=== PATIENT | male | born 1960 | race African-American/Black ===

== ENCOUNTER 2023-11-07 23:07 | Inpatient (IN) | payer OTHER ==
[~2023-11-07] VITALS: Ht 182.9 cm; Wt 93.9 kg
[2023-11-07 23:30] LABS: BASOPHILS % 0.7 % (0.0-2.0); EOSINOPHILS % 3.2 % (0.0-5.0); LYMPHOCYTES % 54.6 % (20.0-50.0); MEAN CORPUSCULAR HEMOGLOBIN 27.1 pg (28.0-32.0); MEAN CORPUSCULAR HGB CONC 32.4 g/dL (31.0-37.0); MEAN CORPUSCULAR VOLUME 83.7 fL (80.0-94.0); MEAN PLATELET VOLUME 8.5 fl (7.4-10.4); MONOCYTES % 4.9 % (2.0-8.0); NEUTROPHILS % 36.6 % (40.0-76.0); PLATELET 156 x1000/uL (130-400); RED BLOOD CELL COUNT 4.06 mill/uL (4.7-6.1); RED CELL DISTRIBUTION WIDTH 14.2 % (11.6-14.6); WHITE BLOOD COUNT 3.9 x1000/uL (4.5-11.0)
[2023-11-07 23:38] LABS: CHLORIDE 111 mEq/L (98-107); POTASSIUM 3.5 mEq/L (3.5-5.1); SODIUM 144 mEq/L (136-145)
[2023-11-07 23:39] LABS: CARBON DIOXIDE 26 mEq/L (21-32)
[2023-11-07 23:40] LABS: CALCIUM 8.4 mg/dL (8.7-10.4)
[2023-11-07 23:44] LABS: CREATININE 1.2 mg/dL (0.6-1.3); GLUCOSE 124 mg/dL (70-105); UREA NITROGEN BLOOD 24 mg/dL (9-23)
[2023-11-07 23:45] LABS: TROPONIN I HIGH SENSITIVITY 6 ng/L (3.0-53)
[2023-11-07 23:46] LABS: ALANINE AMINOTRANSFERASE 163 IU/L (10-49); ASPARTATE AMINOTRANSFERASE 187 IU/L (<34)
[2023-11-07 23:47] LABS: BILIRUBIN TOTAL 0.3 mg/dL (0.1-1.0); D-DIMER 2.44 mg/L FEU (<0.50); INR 1.1; PROTEIN TOTAL 6.7 g/dL (6.0-8.3); PROTHROMBIN TIME 11.9 sec (9.6-11.0)
[2023-11-07 23:51] LABS: ETHANOL BLOOD < 10 mg/dL (<10)
[2023-11-07] MEDS: SODIUM CHLORIDE 0.9% 1000ML BAG (SEPSIS BOLUS) IV ONE (23:53)
[2023-11-08] MEDS: ONDANSETRON HCL 4MG/2ML INJ IV ONE (01:49)
[2023-11-08] MEDS: METHYLPREDNISOLONE SOD SUCC 40MG/ML (ACT-O-VIAL) IV NR (02:45)
[2023-11-08] MEDS: DIPHENHYDRAMINE 50MG/ML VIAL IV ONE (02:45)
[2023-11-08] MEDS: METHYLPREDNISOLONE SOD SUCC 40MG VIAL IV ONE (02:47)
[2023-11-08 03:00] LABS: BG BASE EXCESS -4.1 mmol/L (-2.0-2.0); BG CARBOXYHEMOGLOBIN 0.3 % (0.5-1.5); BG DEOXYHEMOGLOBIN 3.6 % (0.0-5.0); BG FRACTION INSPIRED OXYGEN 21; BG HCO3 ACT 20.9 mmol/L (22.0-26.0); BG METHEMOGLOBIN 0.3 % (0.0-1.5); BG OXYGEN SATURATION 96.4 % (92.0-98.5); BG OXYHEMOGLOBIN 95.8 % (94.0-97.0); BG PH 7.358 (7.350-7.450); BG PO2 92.8 mmHg (75.0-100.0); BG SAMPLE SITE LEFT BRACHIAL; BG TOTAL HEMOGLOBIN 12.8 g/dL (12.0-18.0); BG VENT MODE ROOM AIR
[2023-11-08] MEDS ORDERED: ONDANSETRON HCL 4MG/2ML INJ IV PRN (03:15)
[2023-11-08] MEDS ORDERED: IPRATROPIUM/ALBUTEROL 0.5-3(2.5)MG/3ML NEB HHN PRN (03:15)
[2023-11-08] MEDS ORDERED: ACETAMINOPHEN 650MG/20.3ML UDC GT PRN (03:15)
[2023-11-08] MEDS: PANTOPRAZOLE SODIUM 40 MG/VIAL IV SCH (04:29)
[2023-11-08] MEDS: DEXT 5%/0.45% NACL 1000ML 1,000 ML IV SCH (04:30)
[2023-11-08] MEDS: IOHEXOL-350 100 ML BOTTLE ONE (05:04)
[2023-11-08 08:32] LABS: CREATINE KINASE MB FRACTION 1.7 ng/mL (0.5-3.6); TROPONIN I HIGH SENSITIVITY 4 ng/L (3.0-53)
[2023-11-08 08:33] LABS: IRON 13 ug/dL (65-175)
[2023-11-08 08:36] LABS: CREATINE KINASE 276 IU/L (46-171); FERRITIN 296 ng/mL (22-322); PHOSPHORUS 2.6 mg/dL (2.5-4.9); TOTAL IRON BINDING CAPACITY 94 ug/dl (250-425)
[2023-11-08 08:46] LABS: HEPATITIS B SURFACE ANTIGEN NEGATIVE (Negative)
[2023-11-08 09:05] VITALS: BP 118/70; PULSE 74; RESP 18; TEMP 98.1
[2023-11-08 09:06] VITALS: BP 118/70; PULSE 74; RESP 18; TEMP 98.1
[2023-11-08 09:07] LABS: HEPATITIS A AB IGM NEGATIVE (Negative); HEPATITIS B CORE AB IGM NEGATIVE (Negative)
[2023-11-08 09:08] LABS: HEPATITIS C AB NON REACTIVE (Neg) (Negative)
[2023-11-08] MEDS: ENOXAPARIN 40MG/0.4ML SYR SUBCUT SCH (09:45)
[2023-11-08 12:00] VITALS: BP 120/74; PULSE 134; RESP 22; TEMP 97
[2023-11-08 13:00] LABS: CLARITY URINE CLEAR (CLEAR); COLOR URINE DARK YELLOW (YELLOW); GLUCOSE URINE NEGATIVE (NEGATIVE); KETONES URINE 2+ (NEGATIVE); LEUKOCYTE ESTERASE URINE TRACE (NEGATIVE); NITRITE URINE NEGATIVE (NEGATIVE); OCCULT BLOOD URINE NEGATIVE (NEGATIVE); PH URINE 5.5 (4.5-8.0); PROTEIN URINE 1+ (NEGATIVE); SPECIFIC GRAVITY URINE 1.061 (1.005-1.030)
[2023-11-08 13:32] LABS: *AMPHETAMINES SCREEN URINE NEGATIVE (NEGATIVE); *BARBITURATES SCREEN URINE NEGATIVE (NEGATIVE); *BENZODIAZEPINES SCREEN URINE NEGATIVE (NEGATIVE); *COCAINE SCREEN URINE NEGATIVE (NEGATIVE); METHADONE URINE SCREEN NEGATIVE (NEGATIVE); OPIATES URINE SCREEN NEGATIVE (NEGATIVE)
[2023-11-08 13:33] LABS: CANNABINOID URINE SCREEN NEGATIVE (NEGATIVE); ECSTASY MDMA SCREEN URINE NEGATIVE (NEGATIVE); PHENCYCLIDINE URINE SCREEN NEGATIVE (NEGATIVE); SQUAMOUS EPITHELIAL CELL URINE RARE /lpf (RARE/1+)
[2023-11-08 13:34] LABS: BACTERIA URINE TRACE
[2023-11-08 13:35] LABS: RBC URINE 0-2 /hpf (0-2); WBC URINE 0-2 /hpf (0-2)
[2023-11-08 16:00] VITALS: BP 110/68; PULSE 84; RESP 22; TEMP 98.4
[2023-11-08 17:00] LABS: DIFFERENTIAL COMMENT 1; HEMATOCRIT. 36.5 % (42.0-52.0); HEMOGLOBIN. 11.7 g/dL (14.0-18.0); MEAN CORPUSCULAR HEMOGLOBIN 26.8 pg (28.0-32.0); MEAN CORPUSCULAR HGB CONC 31.9 g/dL (31.0-37.0); MEAN PLATELET VOLUME 9.1 fl (7.4-10.4); PLATELET 175 x1000/uL (130-400); RED BLOOD CELL COUNT 4.35 mill/uL (4.7-6.1); RED CELL DISTRIBUTION WIDTH 14.3 % (11.6-14.6); WHITE BLOOD COUNT 13.1 x1000/uL (4.5-11.0)
[2023-11-08 17:24] LABS: CREATINE KINASE MB FRACTION 1.2 ng/mL (0.5-3.6)
[2023-11-08 17:42] LABS: CHLORIDE 111 mEq/L (98-107); POTASSIUM 4.2 mEq/L (3.5-5.1); SODIUM 141 mEq/L (136-145)
[2023-11-08 17:43] LABS: CALCIUM 8.3 mg/dL (8.7-10.4); CARBON DIOXIDE 23 mEq/L (21-32)
[2023-11-08 17:48] LABS: GLUCOSE 152 mg/dL (70-105); UREA NITROGEN BLOOD 19 mg/dL (9-23)
[2023-11-08 17:50] LABS: ALANINE AMINOTRANSFERASE 361 IU/L (10-49); ALBUMIN 3.9 g/dL (3.2-4.8); ASPARTATE AMINOTRANSFERASE 235 IU/L (<34); PHOSPHORUS 2.9 mg/dL (2.5-4.9)
[2023-11-08 17:51] LABS: BILIRUBIN TOTAL 0.8 mg/dL (0.1-1.0); PROTEIN TOTAL 6.4 g/dL (6.0-8.3)
[2023-11-08 18:02] LABS: PLATELET ESTIMATE NORMAL
[2023-11-08 20:31] VITALS: BP 118/75; PULSE 131; RESP 16; TEMP 98.4
[2023-11-09] VITALS: BP 103/63; PULSE 88; RESP 20; TEMP 97.3
[2023-11-09 04:00] VITALS: PULSE 83; RESP 16; TEMP 97.8
[2023-11-09 08:00] VITALS: BP 110/74; PULSE 80; RESP 18; TEMP 97.4
[2023-11-09 09:14] LABS: BASOPHILS % 0.2 % (0.0-2.0); EOSINOPHILS % 0.3 % (0.0-5.0); HEMATOCRIT. 33.8 % (42.0-52.0); HEMOGLOBIN. 11.1 g/dL (14.0-18.0); MEAN CORPUSCULAR HEMOGLOBIN 26.9 pg (28.0-32.0); MEAN CORPUSCULAR HGB CONC 32.8 g/dL (31.0-37.0); MEAN CORPUSCULAR VOLUME 82.2 fL (80.0-94.0); MEAN PLATELET VOLUME 9.2 fl (7.4-10.4); MONOCYTES % 8.6 % (2.0-8.0); NEUTROPHILS % 78.9 % (40.0-76.0); PLATELET 151 x1000/uL (130-400); RED BLOOD CELL COUNT 4.11 mill/uL (4.7-6.1); RED CELL DISTRIBUTION WIDTH 14.2 % (11.6-14.6); WHITE BLOOD COUNT 8.8 x1000/uL (4.5-11.0)
[2023-11-09 09:33] LABS: CHLORIDE 107 mEq/L (98-107); POTASSIUM 3.8 mEq/L (3.5-5.1); SODIUM 140 mEq/L (136-145)
[2023-11-09 09:34] LABS: CARBON DIOXIDE 27 mEq/L (21-32)
[2023-11-09 09:35] LABS: CALCIUM 8.3 mg/dL (8.7-10.4)
[2023-11-09 09:40] LABS: CREATININE 0.9 mg/dL (0.6-1.3); GLUCOSE 110 mg/dL (70-105)
[2023-11-09 09:41] LABS: ALANINE AMINOTRANSFERASE 281 IU/L (10-49); ALBUMIN 3.9 g/dL (3.2-4.8); ASPARTATE AMINOTRANSFERASE 127 IU/L (<34); LDL CHOLESTEROL 58 mg/dL (5-100); TRIGLYCERIDE 47 mg/dL (0-150); UREA NITROGEN BLOOD 16 mg/dL (9-23)
[2023-11-09 09:42] LABS: CHOLESTEROL 114 mg/dL (<200); HDL CHOLESTEROL 53 mg/dL (>55)
[2023-11-09 09:43] LABS: BILIRUBIN TOTAL 0.9 mg/dL (0.1-1.0); PROTEIN TOTAL 6.3 g/dL (6.0-8.3); THYROID STIMULATING HORMONE 2.18 uIU/mL (0.55-4.78)
[2023-11-09 12:00] VITALS: BP 111/80; PULSE 73; RESP 20; TEMP 98.1
[2023-11-09 15:30] VITALS: BP 111/80; PULSE 73; TEMP 98.1; O2SAT 98
== END 2023-11-09 15:45 | disposition home or self-care (01) | DRG 312 ==
LOC: ER 23:07 → 7WST 11-08 02:40 → EDBEDREQTM 11-08 02:49 → EDBEDREQ 11-08 02:49 → UNDOADMIN 11-08 05:44 → 7WST 11-08 05:44
PROVIDERS: ADMIT Hospitalist; ATTEND Hospitalist
DX: R55 Syncope and collapse (principal); I31.39 Other pericardial effusion (noninflammatory); I45.2 Bifascicular block; D64.9 Anemia, unspecified; D72.820 Lymphocytosis (symptomatic); R56.9 Unspecified convulsions; Z95.0 Presence of cardiac pacemaker; I25.2 Old myocardial infarction; Z79.899 Other long term (current) drug therapy; Z20.822 Contact with and (suspected) exposure to COVID-19; Z88.8 Allergy status to other drugs, medicaments and biological substances; R73.03 Prediabetes; E78.5 Hyperlipidemia, unspecified
CPT/HCPCS: 36415; 36600; 71045; 71275; 74176; 76700; 80053; 80061; 80305; 80320; 81003; 82375; 82550; 82553; 82728; 82805; 83036; 83540; 83550; 83605; 83735; 83880; 84100; 84145; 84443; 84484; 85025; 85379; 86705; 86709; 86850; 86900; 87015; 87045; 87177; 87209; 87340; 87426; 87427; 87449; 87493; 87804; 89055; 93005; 93306; 99291; C9113; J1200; J1650; J2405; J2920; J7030; Q9967; G0480